=== PATIENT | female | born 2000 | race Caucasian/White ===

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

== ENCOUNTER 2018-07-22 14:54 | Outpatient (RCR) | payer BC | END 2018-07-22 15:31 | disposition home or self-care (01) | PROVIDERS: ATTEND Orthopaedic Surgery | DX: M24.561 Contracture, right knee (principal) ==

== ENCOUNTER 2020-07-29 15:41 | Emergency (ER) | payer BC ==
[~2020-07-29] VITALS: Ht 135 cm; Wt 63.5 kg
[2020-07-29 17:15] LABS: BASOPHILS # (AUTO) 0.1 10^3/uL (0.0-0.1); BASOPHILS % (AUTO) 1 % (0-10); EOSINOPHILS # (AUTO) 0.5 10^3/uL (0.0-0.3); EOSINOPHILS % (AUTO) 4 % (0-10); HEMATOCRIT 43 % (35-52); HEMOGLOBIN 14.9 g/dL (11.5-16.0); LYMPHOCYTES # (AUTO) 3.5 10^3/uL (1.0-4.0); LYMPHOCYTES % (AUTO) 27 % (12-44); MEAN CORPUSCULAR HEMOGLOBIN 32 pg (25-34); MEAN CORPUSCULAR HGB CONC 35 g/dL (32-36); MEAN CORPUSCULAR VOLUME 91 fL (80-99); MEAN PLATELET VOLUME 10.3 fL (9.0-12.2); MONOCYTES # (AUTO) 0.6 10^3/uL (0.0-1.0); MONOCYTES % (AUTO) 5 % (0-12); NEUTROPHILS % (AUTO) 63 % (42-75); PLATELET COUNT 255 10^3/uL (130-400); WHITE BLOOD COUNT 12.7 10^3/uL (4.3-11.0)
[2020-07-29 17:18] LABS: BILIRUBIN,URINE NEGATIVE (NEGATIVE); CLARITY,URINE CLEAR; COLOR,URINE YELLOW; GLUCOSE, URINE (UA) NEGATIVE (NEGATIVE); KETONES,URINE NEGATIVE (NEGATIVE); LEUKOCYTE ESTERASE ,URINE NEGATIVE (NEGATIVE); NITRITE,URINE NEGATIVE (NEGATIVE); PROTEIN,URINE NEGATIVE (NEGATIVE)
[2020-07-29 17:25] LABS: BACTERIA,URINE TRACE /HPF; RBC,URINE 0-2 /HPF; SQUAMOUS EPITHELIAL CELL,UR 0-2 /HPF
--- NOTE | 2020-07-29 17:30 | ED GU-Female ---
General Chief Complaint: Female Reproductive Stated Complaint: + TEST/VAG BLEEDING Nursing Triage Note: pt c/o vaginal bleeding onset today. Reports LMP ended on 07/01, has had 4 positive tests at home Nursing Sepsis Screen: No Definite Risk Source: patient Exam Limitations: no limitations (AMERICO COLUNGA MD) History of Present Illness Date Seen by Provider: July 29, 2020 Time Seen by Provider: 16:54 Initial Comments This 19-year-old young lady presents to the emergency room with complaints of vaginal bleeding and cramping consistent with flow and intensity of a menstrual period. She has recently taken for urine test at home, all of which have been positive. The last one was this morning. Her LMP was June 27. Bleeding and cramping started around 13:00. She had some dysuria yesterday. She denies any vaginal discharge but has had pain with intercourse over the past 2 weeks. Her last intercourse was last night. She has been nauseated without vomiting. She denies any history of vaginal infections. She has never had a pelvic exam. (AMERICO COLUNGA MD) Allergies and Home Medications Allergies Coded Allergies: No Known Drug Allergies (Unverified , 08/27/10) Home Medications Cephalexin 500 Mg Capsule, 500 MG PO TID Prescribed by: LUIS M GASCA on 04/29/17 0149 Patient Home Medication List Home Medication List Reviewed: Yes (AMERICO COLUNGA MD) Review of Systems Review of Systems Constitutional: no symptoms reported EENTM: no symptoms reported Respiratory: no symptoms reported Cardiovascular: no symptoms reported Gastrointestinal: see HPI Genitourinary: see HPI : Yes LMP: Jun 27, 2020 Musculoskeletal: no symptoms reported Skin: no symptoms reported Psychiatric/Neurological: No Symptoms Reported Endocrine: No Symptoms Reported Hematologic/Lymphatic: No Symptoms Reported (AMERICO COLUNGA MD) Past Qldyrze-Mwzkqh-Fnlbrd Hx Past Med/Social Hx: Reviewed and Corrections made (AMERICO COLUNGA MD) Patient Social History Alcohol Use: Denies Use Drug of Choice: WEED Smoking Status: Never a Smoker Recent Infectious Disease Expo: No (AMERICO COLUNGA MD) Past Medical History Surgeries: Yes Adenoidectomy, Tonsillectomy Respiratory: No Cardiac: No Neurological: No : Yes Last Menstrual Period: Jun 27, 2020 Genitourinary: No Gastrointestinal: No Musculoskeletal: No Endocrine: No Cancer: No Psychosocial: No Integumentary: No (AMERICO COLUNGA MD) Physical Exam Vital Signs Vital Signs - First Documented 07/29/20 16:28 Temp 36.7 Pulse 77 Resp 17 B/P (MAP) 136/92 (107) Pulse Ox 100 O2 Delivery Room Air (ANTIONE NOLAN MD) Vital Signs Capillary Refill : Less Than 3 Seconds (AMERICO COLUNGA MD) Height, Weight, BMI Height: 5'5.00" Weight: 132lbs. oz. 59.481829cc; 34.00 BMI Method: General Appearance: WD/WN, no apparent distress HEENT: normal ENT inspection Neck: normal inspection Cardiovascular: regular rate, rhythm, no edema, no murmur Respiratory: lungs clear, normal breath sounds, no respiratory distress Gastrointestinal: normal bowel sounds, soft, tenderness (Minimal in the suprapubic and left adnexal regions) Extremities: normal inspection, no pedal edema Neurologic/Psychiatric: alert, normal mood/affect, oriented x 3 Skin: normal color, warm/dry (AMERICO COLUNGA MD) Progress/Results/Core Measures Suspected Sepsis Recent Fever Within 48 Hours: No Infection Criteria Present: None New/Unexplained Altered Menta: No Sepsis Screen: No Definite Risk SIRS Temperature: Pulse: 77 Respiratory Rate: 17 Laboratory Tests 07/29/20 17:00: White Blood Count 12.7H Blood Pressure 136 /92 Mean: 107 Laboratory Tests 07/29/20 17:00: Platelet Count 255 (AMERICO COLUNGA MD) Results/Orders Lab Results Laboratory Tests Test 07/29/20 17:00 07/29/20 17:04 07/29/20 18:23 Range/Units White Blood Count 12.7 H 4.3-11.0 10^3/uL Red Blood Count 4.70 3.80-5.11 10^6/uL Hemoglobin 14.9 11.5-16.0 g/dL Hematocrit 43 35-52 % Mean Corpuscular Volume 91 80-99 fL Mean Corpuscular Hemoglobin 32 25-34 pg Mean Corpuscular Hemoglobin Concent 35 32-36 g/dL Red Cell Distribution Width 11.5 10.0-14.5 % Platelet Count 255 130-400 10^3/uL Mean Platelet Volume 10.3 9.0-12.2 fL Immature Granulocyte % (Auto) 0 % Neutrophils (%) (Auto) 63 42-75 % Lymphocytes (%) (Auto) 27 12-44 % Monocytes (%) (Auto) 5 0-12 % Eosinophils (%) (Auto) 4 0-10 % Basophils (%) (Auto) 1 0-10 % Neutrophils # (Auto) 8.0 H 1.8-7.8 10^3/uL Lymphocytes # (Auto) 3.5 1.0-4.0 10^3/uL Monocytes # (Auto) 0.6 0.0-1.0 10^3/uL Eosinophils # (Auto) 0.5 H 0.0-0.3 10^3/uL Basophils # (Auto) 0.1 0.0-0.1 10^3/uL Immature Granulocyte # (Auto) 0.0 0.0-0.1 10^3/uL Human Chorionic Gonadotropin, Quant 55 H <5 MIU/ML Urine Color YELLOW Urine Clarity CLEAR Urine pH 6.0 5-9 Urine Specific Crandall 1.015 L 1.016-1.022 Urine Protein NEGATIVE NEGATIVE Urine Glucose (UA) NEGATIVE NEGATIVE Urine Ketones NEGATIVE NEGATIVE Urine Nitrite NEGATIVE NEGATIVE Urine Bilirubin NEGATIVE NEGATIVE Urine Urobilinogen 0.2 < = 1.0 MG/DL Urine Leukocyte Esterase NEGATIVE NEGATIVE Urine RBC (Auto) 2+ H NEGATIVE Urine RBC 0-2 /HPF Urine WBC NONE /HPF Urine Squamous Epithelial Cells 0-2 /HPF Urine Crystals NONE /LPF Urine Bacteria TRACE /HPF Urine Casts NONE /LPF Urine Mucus SMALL H /LPF Urine Culture Indicated NO (ANTIONE NOLAN MD) My Orders Orders - ANTIONE NOLAN MD Ceftriaxone For Im Use (Rocephin For Im (07/29/20 18:30) Azithromycin Tablet (Zithromax Tablet) (07/30/20 09:00) Lidocaine 1% Inj 20 Ml (Xylocaine 1% Inj (07/29/20 18:30) (ANTIONE NOLAN MD) Vital Signs/I&O 07/29/20 16:28 Temp 36.7 Pulse 77 Resp 17 B/P (MAP) 136/92 (107) Pulse Ox 100 O2 Delivery Room Air (ANTIONE NOLAN MD) Vital Signs/I&O Capillary Refill : Less Than 3 Seconds (AMERICO COLUNGA MD) Blood Pressure Mean: 107 Progress Note : Time: 17:29 Progress Note Patient was seen and examined. Labs and urinalysis are pending. Patient was offered a pelvic exam which she accepts, but she would like to wait for Dr. Nolan (female provider) as she is nervous because she has never had a pelvic exam before. (AMERICO COLUNGA MD) Progress Note : Time: 18:25 Progress Note Patient care assumed at shift change from Dr Feliciano. Pelvic exam completed. She was quite tender on bimanual exam. She did not have abnormal vaginal discharge but she did have a mild to moderate amount of dark brownish blood in the vault. Swabs for GC and chlamydia were taken. Wet prep was also obtained. Os was closed on this exam. She was quite tender in the bilateral adnexa. No masses were palpated. Patient will be treated with Zithromax and Rocephin here in the department. She will come back in 2 days for repeat quantitative hCG. Patient is counseled on pelvic rest over the next several days until follow-up with [employer]. She verbalized understanding. All questions are sought and answered. Patient is stable for discharge. (ANTIONE NOLAN MD) Departure Impression Primary Impression: Threatened miscarriage Disposition: 01 HOME, SELF-CARE Condition: Stable Departure-Patient Inst. Decision time for Depature: 18:28 (ANTIONE NOLAN MD) Referrals: TERESO BARNES MD (PCP/Family) Primary Care Physician Patient Instructions: Threatened Miscarriage (DC) Add. Discharge Instructions: Please drink plenty of fluids to stay well-hydrated. Continue to take vitamins. You can take also agrl-xwv-dqfhjcq extra strength Tylenol 2 tablets every 4-6 hours as needed for cramping and pain. This is safe in early . You have been given an order sheet for repeat blood work for your hormone level. You need to come back on Friday to have this redrawn. Please follow-up with your primary care/[employer] provider next week. Return to the emergency room for any worsening pain, heavy bleeding, fevers or any other emergent concerning symptoms. AMERICO COLUNGA MD July 29, 2020 17:30 ANTIONE NOLAN MD July 29, 2020 18:29
[2020-07-29] MEDS ORDERED: LIDOCAINE 1% INJ 20 ML 20 ML VIAL INJ ONE (18:30)
[2020-07-29] MEDS ORDERED: cefTRIAXone 250 MG/ML vial (IM ONLY) IM ONE (18:30)
[2020-07-29 19:07] VITALS: BP 136/92
[2020-07-30] MEDS ORDERED: AZITHROMYCIN 250 MG TAB (ZITHROMAX) PO SCH (09:00)
== END 2020-07-29 19:07 | disposition home or self-care (01) ==
LOC: EDUNIT# 15:41 → ER 15:45
DX: O20.0 Threatened abortion (principal); Z3A.00 Weeks of gestation of pregnancy not specified
CPT/HCPCS: 36415; 81000; 84702; 85025; 86900; 86901; 87070; 87077; 87205; 87210; 87491; 87591; 99284

== ENCOUNTER → 2020-07-31 | Outpatient (CLI) | payer BC | LOC: LAB 11:27 | PROVIDERS: ATTEND Emergency Medicine | DX: O20.0 Threatened abortion (principal) | CPT/HCPCS: 36415; 84702 ==

== ENCOUNTER → 2020-08-07 | Outpatient (CLI) | payer BC ==
--- NOTE | 2020-08-07 18:45 | Diagnostic Imaging Report ---
PROCEDURE: US OB SINGLE FETUS <14 WKS. TECHNIQUE: Multiple real-time grayscale images were obtained over the pelvis in various projections transabdominally and transvaginally. INDICATION: Threatened miscarriage, bleeding and spotting during over the past 3 days. CORRELATION STUDY: None FINDINGS: Uterus is 6.1 x 3.4 x 4.0 cm. Uterus is retroverted. Endometrium is thin at approximately 2-3 mm. There is no sonographic evidence for an intrauterine gestational sac. Imaging of the adnexa demonstrates the ovaries to be unremarkable. Right ovary is 3.8 x 1.5 x 3.0 cm. The left ovary is 2.0 x 1.6 x 2.1 cm. Small likely physiologic follicles are present. Normal blood flow to the ovaries. No definitive abnormal adnexal mass lesion. IMPRESSION: 1. No sonographic evidence for an intrauterine or extrauterine at this time. Correlation with serial beta hCG and pelvic ultrasound imaging as clinically warranted. Dictated by: Dictated on workstation # [id number]
== END ==
LOC: RAD 14:30
PROVIDERS: ATTEND Family Medicine
DX: O20.0 Threatened abortion (principal); Z3A.00 Weeks of gestation of pregnancy not specified
CPT/HCPCS: 76801

== ENCOUNTER 2021-05-21 10:38 | Observation (INO) | payer BC ==
[2021-05-21] VITALS (13 sets, daily range): BP systolic 111–124; BP diastolic 68–90
[~2021-05-21] VITALS: Ht 165.1 cm; Wt 85.3 kg
[2021-05-21 11:20] LABS: BASOPHILS # (AUTO) 0.1 10^3/uL (0.0-0.1); BASOPHILS % (AUTO) 1 % (0-10); EOSINOPHILS # (AUTO) 0.3 10^3/uL (0.0-0.3); EOSINOPHILS % (AUTO) 1 % (0-10); HEMATOCRIT 38 % (35-52); HEMOGLOBIN 13.4 g/dL (11.5-16.0); LYMPHOCYTES # (AUTO) 3.3 10^3/uL (1.0-4.0); LYMPHOCYTES % (AUTO) 17 % (12-44); MEAN CORPUSCULAR HEMOGLOBIN 32 pg (25-34); MEAN CORPUSCULAR HGB CONC 35 g/dL (32-36); MEAN CORPUSCULAR VOLUME 92 fL (80-99); MEAN PLATELET VOLUME 10.2 fL (9.0-12.2); MONOCYTES # (AUTO) 1.1 10^3/uL (0.0-1.0); MONOCYTES % (AUTO) 6 % (0-12); NEUTROPHILS # (AUTO) 14.4 10^3/uL (1.8-7.8); NEUTROPHILS % (AUTO) 73 % (42-75); PLATELET COUNT 286 10^3/uL (130-400); WHITE BLOOD COUNT 19.7 10^3/uL (4.3-11.0)
[2021-05-21 11:42] LABS: ALBUMIN 3.2 GM/DL (3.2-4.5); BILIRUBIN,TOTAL 0.2 MG/DL (0.1-1.0); CALCIUM 8.8 MG/DL (8.5-10.1); CREATININE SERUM 0.62 MG/DL (0.60-1.30); POTASSIUM 3.7 MMOL/L (3.6-5.0); TOTAL PROTEIN 6.3 GM/DL (6.4-8.2); URIC ACID 2.9 MG/DL (2.6-7.2)
[2021-05-21 11:43] LABS: BAND NEUTROPHILS 3 %; BASOPHILS % (MANUAL) 2 %; EOSINOPHILS % (MANUAL) 2 %; LYMPHOCYTES % (MANUAL) 13 %; MONOCYTES % (MANUAL) 4 %; NEUTROPHILS % (MANUAL) 76 %; RBC MORPH NORMAL
[2021-05-21] MEDS ORDERED: CALCIUM CARBONATE 500 MG (TUMS) TAB.CHEW PO NR (17:30)
[2021-05-21] MEDS ORDERED: ACETAMINOPHEN 500 MG TAB (TYLENOL) PO PRN (17:30)
[2021-05-22 00:35] VITALS: BP 108/61
[2021-05-22 04:01] VITALS: BP 107/68
[2021-05-22 08:00] VITALS: BP 113/76
[2021-05-22 09:07] VITALS: BP 113/76
[2021-05-22 11:18] LABS: PROTEIN URINE MG/DL < 6 MG/DL (6-12)
[2021-05-22 11:25] LABS: TOTAL VOLUME,URINE 1900 ML
[2021-05-22 12:00] VITALS: BP 124/72
--- NOTE | 2021-05-22 13:19 | Short Stay Summary ---
History of Present Illness History of Present Illness Reason for visit/HPI at 37w0d, found to have second elevated blood pressure within a week outpatient and elevated urine protein/creatinine spot value as well as complaining of spots in vision, admitted for rule out preeclampsia. Date of Admission May 21, 2021 at 10:38 Date of Discharge May 22, 2021 Time Seen by Provider: 13:00 Attending Physician Tereso Sin MD Admitting Physician Tereso Sin MD Consult Allergies and Home Medications Allergies Coded Allergies: No Known Drug Allergies (Unverified , 08/27/10) Patient Home Medication List Home Medication List Reviewed: Yes Acetaminophen (Acetaminophen) 500 Mg Tablet, 500 MG PO Q6H PRN for PAIN-MILD (1- 4), (Reported) Entered as Reported by: TERESO SIN on 05/22/21 1330 Vit No.124/Iron/FA ( Vitamin Tablet) 1 Each Tablet, 1 EACH PO DAILY, (Reported) Entered as Reported by: TERESO SIN on 05/22/21 1329 Discontinued Medications Cephalexin (Keflex) 500 Mg Capsule, 500 MG PO TID Prescribed by: LUIS M GASCA on 04/29/17 1705 Past Dqqjwqs-Zqfiob-Hrbikv Hx Patient Social History Drug of Choice: history of THC Smoking Status: Never a Smoker 2nd Hand Smoke Exposure: Yes Immunizations Up To Date Tetanus Booster (TDap): Less than 5yrs (03/30/21) Date of Influenza Vaccine: Jan 03, 2021 Surgeries Yes Adenoidectomy, Tonsillectomy Respiratory No Cardiovascular No Neurological No Reproductive System Expected Date of Delivery: Jun 11, 2021 Hx : 2 Hx Para: 0 Hx Total # of Abortions (Spona: 1 Hx Reproductive Disorders: No Sexually Transmitted Disease: No HIV/AIDS: No Genitourinary No Gastrointestinal No Musculoskeletal No Endocrine History of Endocrine Disorders: No Cancer No Psychosocial History of Psychiatric Problem: No Integumentary History of Skin or Integumenta: No Family Medical History Significant Family History: Hypertension, Psychiatric Problems Review of Systems Constitutional: No fever Respiratory: No short of breath Gastrointestinal: No abdominal pain Genitourinary: pain (vaginal) : Yes Expected Date of Delivery: Jun 11, 2021 Skin: no symptoms reported Psychiatric/Neurological: No Symptoms Reported Physical Exam Vital Signs VS - Last 72 Hours, by Label 05/21/21 05/21/21 05/21/21 05/21/21 10:38 10:38 10:55 11:15 Temp 36.8 36.8 Pulse 85 85 85 80 Resp 18 18 18 18 B/P (MAP) 119/90 (100) 124/75 (91) 114/77 Pulse Ox 94 94 O2 Delivery Room Air Room Air Room Air 05/21/21 05/21/21 05/21/21 05/21/21 11:15 11:15 11:25 11:40 Temp 37.8 Pulse 85 77 81 76 Resp 18 18 18 18 B/P (MAP) 119/90 116/69 (85) 111/74 (86) 118/74 (89) O2 Delivery Room Air Room Air Room Air 05/21/21 05/21/21 05/21/21 05/21/21 11:55 12:10 12:25 12:36 Temp 37.8 Pulse 82 80 75 85 Resp 18 18 18 18 B/P (MAP) 111/68 (82) 114/77 (89) 117/72 (87) Pulse Ox 94 O2 Delivery Room Air Room Air Room Air Room Air 05/21/21 05/21/21 05/21/21 05/22/21 17:14 20:40 20:45 00:35 Temp 36.2 36.0 36.0 36.2 Pulse 83 88 88 68 Resp 18 18 18 18 B/P (MAP) 115/75 (88) 123/68 123/68 (86) 108/61 (77) Pulse Ox 99 96 99 O2 Delivery Room Air Room Air Room Air 05/22/21 05/22/21 05/22/21 05/22/21 04:01 08:00 09:07 12:00 Temp 36.1 36.4 36.4 36.4 Pulse 68 78 78 78 Resp 18 18 18 18 B/P (MAP) 107/68 (81) 113/76 (88) 113/76 124/72 (89) Pulse Ox 98 98 O2 Delivery Room Air Room Air Room Air 05/22/21 14:20 Temp 36.4 Pulse 78 Resp 18 B/P (MAP) 124/72 Pulse Ox 98 O2 Delivery Room Air Height, Weight, BMI Height: 5'5.00" Weight: 132lbs. oz. 59.881722nt; 31.29 BMI Method: General Appearance: No Apparent Distress, WD/WN Respiratory: No Respiratory Distress; No Accessory Muscle Use Gastrointestinal: Other (gravid) Extremity: No Pedal Edema Neurologic/Psychiatric: Alert, Normal Mood/Affect Skin: Normal Color, Warm/Dry Short Stay Diagnosis Discharge Diagnosis-Short Stay Admission Diagnosis: Elevated blood pressure in third trimester of Term intrauterine at 37 weeks gestation Final Discharge Diagnosis: Term intrauterine at 37 weeks gestation Conclusion Labs Laboratory Tests 05/22/21 10:20: Urine Total Volume 1900, Urine Total Protein mg/dL < 6L, Urine Total Protein 24 Hour Conclusion/Plan Pt admitted, preeclampsia labs were normal (has chronic elevated WBC, not consistent with preeclampsia concern) and 24 hour urine protein was very low. Blood pressure was normal for the next 24 hours after only one diastolic of 90 on admission. status reassuring with reactive NSTs throughout stay. TERESO SIN MD May 22, 2021 13:19
[2021-05-22] MEDS ORDERED: PREN-142 PO (13:29)
[2021-05-22] MEDS ORDERED: ACET-93 PO (13:30)
[2021-05-22 14:20] VITALS: BP 124/72
== END 2021-05-22 14:20 | disposition home or self-care (01) ==
LOC: LDRP 10:38
PROVIDERS: ADMIT Family Medicine; ATTEND Family Medicine
DX: O26.893 Other specified pregnancy related conditions, third trimester (principal); R03.0 Elevated blood-pressure reading, without diagnosis of hypertension; Z3A.37 37 weeks gestation of pregnancy; Z79.899 Other long term (current) drug therapy; Z82.49 Family history of ischemic heart disease and other diseases of the circulatory system
CPT/HCPCS: 36415; 80053; 83615; 84156; 84550; 85007; 85027

== ENCOUNTER 2021-05-23 19:46 | Outpatient (CLI) | payer BC ==
[~2021-05-23] VITALS: Ht 165.1 cm; Wt 85.0 kg
[~2021-05-23 19:46] MED LIST changes: +ACET-93 PO; +PREN-142 PO
[2021-05-23 20:10] VITALS: BP 115/77
[2021-05-23 20:25] VITALS: BP 111/75
[2021-05-23 20:45] VITALS: BP 111/71
[2021-05-23 20:55] VITALS: BP 109/69
[2021-05-23 21:03] LABS: BILIRUBIN,URINE NEGATIVE (NEGATIVE); CLARITY,URINE SL CLOUDY; COLOR,URINE YELLOW; GLUCOSE, URINE (UA) NEGATIVE (NEGATIVE); KETONES,URINE NEGATIVE (NEGATIVE); LEUKOCYTE ESTERASE ,URINE NEGATIVE (NEGATIVE); NITRITE,URINE NEGATIVE (NEGATIVE); PROTEIN,URINE NEGATIVE (NEGATIVE)
[2021-05-23 21:29] LABS: AMORPHOUS SEDIMENT,UR LARGE AMOR PHOSPHATE /LPF; BACTERIA,URINE LARGE /HPF
--- NOTE | 2021-05-24 08:18 | Physician Query-Final Dx ---
Clinic Account Progress/Dx Physician Query: Please give diagnosis (pl) Please include # weeks gestation Date of Service May 23, 2021 at 19:46 ,MarMay 24, 2021 08:18
== END 2021-05-23 21:05 ==
LOC: WSo 19:46 → LDRP 19:46 → WSo 21:05
PROVIDERS: ATTEND Family Medicine
DX: O13.9 Gestational [pregnancy-induced] hypertension without significant proteinuria, unspecified trimester (principal); Z3A.00 Weeks of gestation of pregnancy not specified
CPT/HCPCS: 81000; 87088; 99212

== ENCOUNTER → 2021-05-31 | Outpatient (CLI) | payer BC ==
[2021-05-31 16:30] LABS: BASOPHILS # (AUTO) 0.1 10^3/uL (0.0-0.1); BASOPHILS % (AUTO) 0 % (0-10); EOSINOPHILS # (AUTO) 0.5 10^3/uL (0.0-0.3); EOSINOPHILS % (AUTO) 3 % (0-10); HEMATOCRIT 37 % (35-52); HEMOGLOBIN 13.2 g/dL (11.5-16.0); LYMPHOCYTES # (AUTO) 2.7 10^3/uL (1.0-4.0); LYMPHOCYTES % (AUTO) 15 % (12-44); MEAN CORPUSCULAR HEMOGLOBIN 33 pg (25-34); MEAN CORPUSCULAR HGB CONC 36 g/dL (32-36); MEAN CORPUSCULAR VOLUME 92 fL (80-99); MEAN PLATELET VOLUME 10.4 fL (9.0-12.2); MONOCYTES % (AUTO) 6 % (0-12); NEUTROPHILS % (AUTO) 74 % (42-75); PLATELET COUNT 326 10^3/uL (130-400); WHITE BLOOD COUNT 17.7 10^3/uL (4.3-11.0)
[2021-05-31 16:42] LABS: ALBUMIN 3.4 GM/DL (3.2-4.5); POTASSIUM 3.6 MMOL/L (3.6-5.0)
[2021-05-31 16:43] LABS: CALCIUM 9.3 MG/DL (8.5-10.1)
[2021-05-31 16:44] LABS: TOTAL PROTEIN 6.8 GM/DL (6.4-8.2)
[2021-05-31 16:46] LABS: BILIRUBIN,TOTAL 0.3 MG/DL (0.1-1.0)
[2021-05-31 16:48] LABS: CREATININE SERUM 0.68 MG/DL (0.60-1.30)
[2021-05-31 16:51] LABS: URIC ACID 2.9 MG/DL (2.6-7.2)
[2021-05-31 16:53] LABS: BAND NEUTROPHILS 1 %; EOSINOPHILS % (MANUAL) 2 %; LYMPHOCYTES % (MANUAL) 19 %; METAMYELOCYTES % 2 %; MONOCYTES % (MANUAL) 6 %; NEUTROPHILS % (MANUAL) 70 %; PLATELET CLUMPS SLIGHT
[2021-05-31 16:54] LABS: RBC MORPH NORMAL
== END ==
LOC: LAB 16:06
PROVIDERS: ATTEND Family Medicine
DX: O13.3 Gestational [pregnancy-induced] hypertension without significant proteinuria, third trimester (principal); Z3A.00 Weeks of gestation of pregnancy not specified
CPT/HCPCS: 36415; 80053; 82570; 83615; 84156; 84550; 85007; 85027

== ENCOUNTER 2021-06-04 18:19 | Inpatient (IN) | payer BC ==
[~2021-06-04] VITALS: Ht 165.1 cm; Wt 86.7 kg
[2021-06-04] VITALS (7 sets, daily range): BP systolic 116–129; BP diastolic 57–81
[2021-06-04] MEDS ORDERED: MINERAL OIL 30 ML OIL TOP PRN (18:45)
[2021-06-04] MEDS: LACTATED RINGERS 1,000 ML IV SCH (18:55)
[2021-06-04] MEDS ORDERED: MINERAL OIL CONCENTRATE 99.9% 15 ML UDC TOP PRN (19:00)
[2021-06-04 19:18] LABS: BASOPHILS # (AUTO) 0.1 10^3/uL (0.0-0.1); BASOPHILS % (AUTO) 0 % (0-10); EOSINOPHILS # (AUTO) 0.3 10^3/uL (0.0-0.3); EOSINOPHILS % (AUTO) 1 % (0-10); HEMATOCRIT 40 % (35-52); HEMOGLOBIN 14.1 g/dL (11.5-16.0); LYMPHOCYTES # (AUTO) 3.6 10^3/uL (1.0-4.0); LYMPHOCYTES % (AUTO) 16 % (12-44); MEAN CORPUSCULAR HEMOGLOBIN 33 pg (25-34); MEAN CORPUSCULAR HGB CONC 36 g/dL (32-36); MEAN CORPUSCULAR VOLUME 92 fL (80-99); MEAN PLATELET VOLUME 10.4 fL (9.0-12.2); MONOCYTES # (AUTO) 1.4 10^3/uL (0.0-1.0); MONOCYTES % (AUTO) 6 % (0-12); NEUTROPHILS # (AUTO) 16.7 10^3/uL (1.8-7.8); NEUTROPHILS % (AUTO) 74 % (42-75); PLATELET COUNT 368 10^3/uL (130-400); WHITE BLOOD COUNT 22.6 10^3/uL (4.3-11.0)
[2021-06-04 19:38] LABS: EOSINOPHILS % (MANUAL) 2 %; LYMPHOCYTES % (MANUAL) 14 %; MONOCYTES % (MANUAL) 10 %; NEUTROPHILS % (MANUAL) 74 %
[2021-06-04 19:39] LABS: RBC MORPH NORMAL
[2021-06-04 19:43] LABS: ALBUMIN 3.4 GM/DL (3.2-4.5); BILIRUBIN,TOTAL 0.4 MG/DL (0.1-1.0); CALCIUM 8.8 MG/DL (8.5-10.1); CREATININE SERUM 0.71 MG/DL (0.60-1.30); POTASSIUM 3.2 MMOL/L (3.6-5.0); TOTAL PROTEIN 6.9 GM/DL (6.4-8.2); URIC ACID 3.6 MG/DL (2.6-7.2)
[2021-06-04] MEDS: D5 LR IV SOLUTION 1,000 ML IV SCH (20:00)
[2021-06-04] MEDS ORDERED: CALCIUM CARBONATE 500 MG (TUMS) TAB.CHEW PO PRN (20:15)
[2021-06-04] MEDS ORDERED: CALCIUM CARBONATE 500 MG (TUMS) TAB.CHEW ONE (20:36)
[2021-06-04] MEDS: CATHETER FLUSH 10 ML SYR IV SCH (21:42)
[2021-06-04] MEDS ORDERED: fentaNYL INJ 100 MCG/2 ML AMP IVP PRN (21:45)
[2021-06-04 23:56] LABS: BILIRUBIN,URINE NEGATIVE (NEGATIVE); CLARITY,URINE CLEAR; COLOR,URINE YELLOW; GLUCOSE, URINE (UA) NEGATIVE (NEGATIVE); KETONES,URINE NEGATIVE (NEGATIVE); LEUKOCYTE ESTERASE ,URINE NEGATIVE (NEGATIVE); NITRITE,URINE NEGATIVE (NEGATIVE); PH,URINE 6.5 (5-9); PROTEIN,URINE NEGATIVE (NEGATIVE)
[2021-06-05] VITALS (72 sets, daily range): BP systolic 106–161; BP diastolic 56–91
[2021-06-05 00:05] LABS: BACTERIA,URINE TRACE /HPF
[2021-06-05 00:14] LABS: URINE CREATININE FOR RATIO 59 MG/DL (30-125)
[2021-06-05 00:15] LABS: URINE PROTEIN FOR RATIO ONLY < 6 MG/DL (6-12)
[2021-06-05] MEDS: D5 LR IV SOLUTION 1,000 ML IV SCH ×3 (03:53→19:06)
[2021-06-05] MEDS: CATHETER FLUSH 10 ML SYR IV SCH ×2 (06:00→19:06)
--- NOTE | 2021-06-05 08:31 | History & Physical-OB/GYN ---
MAGGIE COLES III MED STUDENT 06/05/21 0831: OB - Chief Complaint & HPI Date/Time Date of Admission: Date of Admission: Jun 04, 2021 at 18:19 Date seen by a Provider: Jun 05, 2021 Time Seen by a Provider: 08:20 Chief Complaint/History OB-Reason for Admission/Chief: Induction of Labor Hx : 2 Hx Para: 1 Hx Last Menstrual Period: 09/04/2020 Expected Date of Delivery: Jun 11, 2021 Gestational Age in Weeks: 39 Gestational Age in Days: 1 Indication for induction: medical complication (gestational hypertension) History of Labs B+, antibody negative, RI, HIV/HepB/RPR negative, GC/Chlamydia negative, GBS negative, glucola negative Allergies and Home Medications Allergies Coded Allergies: No Known Drug Allergies (Unverified , 08/27/10) Patient Home Medication List Home Medication List Reviewed: Yes Acetaminophen (Acetaminophen) 500 Mg Tablet, 500 MG PO Q6H PRN for PAIN-MILD (1- 4), (Reported) Entered as Reported by: TERESO BARNES on 05/22/21 1330 Last Action: Reviewed Vit No.124/Iron/FA ( Vitamin Tablet) 1 Each Tablet, 1 EACH PO DAILY, (Reported) Entered as Reported by: TERESO BARNES on 05/22/21 1329 Last Action: Reviewed OB - History Hx of Present Care: Yes Ultrasounds: Normal mid trimester US Obstetrical Complications: Gestational Hypertension Medical Complications: None Information Induced Hypertension: Yes Maternal Gestational Diabetes: No Obstetrical History Hx : 2 Hx Para: 1 Hx # Term Pregnancies: 0 Hx # Pregnancies: 0 Number of Living Children: 0 Hx Total # of Abortions (Spona: 1 Hx Multiple Gestation: No Hx Ectopic : No Hx Maternal Gestational Diabet: No Hx Hemorrhage: No Patient Past Medical History Hx of migraines Social History/Family History Alcohol Use: Denies Use Recreational Drug Use: No Smoking Cessation: Never smoker 2nd Hand Smoke Exposure: No Immunizations Influenza Vaccine Up-to-Date: Yes; Up-to-Date Tetanus Booster (TDap): Less than 5yrs Rubella: immune RPR/VDRL: Negative GBS Status: Negative HBsAG: Negative OB - Admission Exam Physical Exam Vitals: Vital Signs 06/04/21 06/05/21 20:00 07:31 Temp 36.5 Pulse 67 Resp 18 B/P (MAP) 122/73 (89) Pulse Ox 98 O2 Delivery Room Air HEENT: PERRLA Heart: Rhythm Normal Lungs: Clear Abdomen: Gravid Extremities: Normal Cervical Dilatation: 2cm Effacement: 50% Station: -1 Membranes: Intact Heart Rate: 130's Accelerations: Accelerations Present Decelerations: No Decelerations Short Term Variability: Absent Fci Variability: Average (6-25) Contractions on Admission: 6-10 Minutes Apart Date/Time Contractions Began;: misoprostol administered at 1999 on 06/04, Frequency of Contractions: 4 minutes apart Intensity: Moderate Villar Scoring Tool (Modified) Dilation (cm): 1-2cm (1) Effacement (%): 31-51% (1) Descent/Station: -1,0 (2) Cervix Consistency: Soft (2) (after cytotec ) Cervix Position: Posterior (0) Villar Score: 6 Labs Laboratory Tests Test 06/04/21 18:55 06/04/21 23:41 06/04/21 23:51 Range/Units White Blood Count 22.6 H 4.3-11.0 10^3/uL Red Blood Count 4.34 3.80-5.11 10^6/uL Hemoglobin 14.1 11.5-16.0 g/dL Hematocrit 40 35-52 % Mean Corpuscular Volume 92 80-99 fL Mean Corpuscular Hemoglobin 33 25-34 pg Mean Corpuscular Hemoglobin Concent 36 32-36 g/dL Red Cell Distribution Width 12.2 10.0-14.5 % Platelet Count 368 130-400 10^3/uL Mean Platelet Volume 10.4 9.0-12.2 fL Immature Granulocyte % (Auto) 3 % Neutrophils (%) (Auto) 74 42-75 % Lymphocytes (%) (Auto) 16 12-44 % Monocytes (%) (Auto) 6 0-12 % Eosinophils (%) (Auto) 1 0-10 % Basophils (%) (Auto) 0 0-10 % Neutrophils # (Auto) 16.7 H 1.8-7.8 10^3/uL Lymphocytes # (Auto) 3.6 1.0-4.0 10^3/uL Monocytes # (Auto) 1.4 H 0.0-1.0 10^3/uL Eosinophils # (Auto) 0.3 0.0-0.3 10^3/uL Basophils # (Auto) 0.1 0.0-0.1 10^3/uL Immature Granulocyte # (Auto) 0.6 H 0.0-0.1 10^3/uL Neutrophils % (Manual) 74 % Lymphocytes % (Manual) 14 % Monocytes % (Manual) 10 % Eosinophils % (Manual) 2 % Blood Morphology Comment NORMAL Sodium Level 134 L 135-145 MMOL/L Potassium Level 3.2 L 3.6-5.0 MMOL/L Chloride Level 106 98-107 MMOL/L Carbon Dioxide Level 16 L 21-32 MMOL/L Anion Gap 12 5-14 MMOL/L Blood Urea Nitrogen 9 7-18 MG/DL Creatinine 0.71 0.60-1.30 MG/DL Estimat Glomerular Filtration Rate 123 BUN/Creatinine Ratio 13 Glucose Level 90 70-105 MG/DL Uric Acid 3.6 2.6-7.2 MG/DL Calcium Level 8.8 8.5-10.1 MG/DL Corrected Calcium 9.3 8.5-10.1 MG/DL Total Bilirubin 0.4 0.1-1.0 MG/DL Aspartate Amino Transf (AST/SGOT) 14 5-34 U/L Alanine Aminotransferase (ALT/SGPT) 7 0-55 U/L Alkaline Phosphatase 214 H 40-136 U/L Lactate Dehydrogenase 154 125-220 U/L Total Protein 6.9 6.4-8.2 GM/DL Albumin 3.4 3.2-4.5 GM/DL Urine Protein < 6 L NEGATIVE NEGATIVE Urine Creatinine 59 30-125 MG/DL Urine Protein/Creatinine Ratio Urine Color YELLOW Urine Clarity CLEAR Urine pH 6.5 5-9 Urine Specific [place] <=1.005 1.016-1.022 Urine Glucose (UA) NEGATIVE NEGATIVE Urine Ketones NEGATIVE NEGATIVE Urine Nitrite NEGATIVE NEGATIVE Urine Bilirubin NEGATIVE NEGATIVE Urine Urobilinogen 0.2 < = 1.0 MG/DL Urine Leukocyte Esterase NEGATIVE NEGATIVE Urine RBC (Auto) NEGATIVE NEGATIVE Urine RBC NONE /HPF Urine WBC NONE /HPF Urine Squamous Epithelial Cells 2-5 /HPF Urine Crystals NONE /LPF Urine Bacteria TRACE /HPF Urine Casts NONE /LPF Urine Mucus SMALL H /LPF Urine Culture Indicated NO OB - Assessment/Plan/Diagnosis Assessment Assessment: induction of labor Admission Dx Induction of lab at 39w1d because of gestational hypertension in mother Plan Plan: Expectant Management, Induction Induction Method: per Pitocin Protocol (with cervical ripening w/ misoprostol on night of admission ) TERESO BARNES MD 06/05/21 0958: OB - Chief Complaint & HPI Chief Complaint/History Hx : 2 Hx Para: 0 Other at 39w1d, has had recurrent mild elevations in blood pressure in clinic setting, first noted with a diastolic pressure of 90 at 36w4d visit, at which time preeclampsia labs were checked and she did have a urine protein/creatinine ratio of 0.37 (otherwise unremarkable except baseline mildly elevated WBC count), she was re-evaluated at time of results, and her BP was normal, but she was endorsing some symptoms or preeclampsia, so she was admitted for observation and 24 hour urine protein and repeat labs, all of which were normal. Since then, she has monitored blood pressure at home along with outpatient visits with max being 143/87 and 142/80 on separate days. Repeat preeclampsia labs remained nega tive on 05/31, and induction was planned at 39 weeks due to the gestational hypertension without feature of preeclampsia. Allergies and Home Medications Allergies Coded Allergies: No Known Drug Allergies (Unverified , 08/27/10) Patient Home Medication List Acetaminophen (Acetaminophen) 500 Mg Tablet, 500 MG PO Q6H PRN for PAIN-MILD (1- 4), (Reported) Entered as Reported by: TERESO BARNES on 05/22/21 1330 Last Action: Reviewed Vit No.124/Iron/FA ( Vitamin Tablet) 1 Each Tablet, 1 EACH PO DAILY, (Reported) Entered as Reported by: TERESO BARNES on 05/22/21 1329 Last Action: Reviewed OB - History Obstetrical History Hx : 2 Hx Para: 0 Hx # Term Pregnancies: 0 Hx # Pregnancies: 0 Number of Living Children: 0 Hx Total # of Abortions (Spona: 1 Hx Stillbirth: No Hx Complication: No Hx Induced Hypertens: Yes Patient Past Medical History SurgHx: Tonsillectomy and adenoidectomy Social History/Family History Recreational Drug Use: No (history of THC use prior to , weaned off early in ) Immunizations Influenza Vaccine Up-to-Date: Yes; Up-to-Date (01/03/21) Tetanus Booster (TDap): Less than 5yrs (03/30/21) OB - Admission Exam Physical Exam Abdomen: Non tender (gravid) Cervical Dilatation: 2cm Effacement: 50% Station: -1 Membranes: Intact Heart Rate: 130's Accelerations: Accelerations Present Decelerations: No Decelerations Short Term Variability: Present Psychodramatist Variability: Average (6-25) Contractions on Admission: None Villar Scoring Tool (Modified) Dilation (cm): 1-2cm (1) (on admission) Effacement (%): 0-30% (0) Descent/Station: -3 (0) Cervix Consistency: Medium(1) Cervix Position: Posterior (0) Subtract 1 point for: Nulliparity (-1) Villar Score: 1 OB - Assessment/Plan/Diagnosis Assessment Admission Dx Term intrauterine at 39 weeks gestation Gestational hypertension GBS negative Admission Status: Inpatient Order (span 2 midnights) Reason for Inpatient Admission: Labor, delivery and course Plan Other Plan GHTN- -Induction per misoprostol procol started last night due to low Villar score, cervix now 2/50/-1, soft and mid-position, stevan frequently, will not continue misoprostol, patient prefers to wait on AROM due to discomfort, will start pitocin and plan for AROM when cervix anterior or after epidural placed. -Preeclampsia labs drawn on admit- negative for superimposed preeclampsia Problems: (1) Gestational hypertension Qualifiers: Qualified Codes: O13.3 - Gestational [-induced] hypertension without significant proteinuria, third trimester Supervisory-Addendum Brief Verification & Attestation Participated in pt care: history, MDM, physical Personally performed: exam, history, MDM Care discussed with: Medical Student Procedures: n/a I personally saw and examined patient at 8:20 this morning. See my notes for my exam findings and plan, I did not repeat the entire done by the medical student but performed my own exam as documented. Also note she is and her Villar score on admit was 1. MAGGIE COLES III MED STUDENT Jun 05, 2021 08:31 TERESO BARNES MD Jun 05, 2021 09:58
[2021-06-05] MEDS ORDERED: OXYTOCIN PRE-MIX DRIP 500 ML IV ONE (08:35)
[2021-06-05] MEDS: OXYTOCIN PRE-MIX DRIP 500 ML IV SCH ×2 (08:40→20:08)
[2021-06-05] MEDS: LACTATED RINGERS 1,000 ML IV SCH (13:00)
[2021-06-05] MEDS ORDERED: fentaNYL 2 mcg/ml BUPIVA 0.125 100 ML ONE (13:17)
--- NOTE | 2021-06-05 13:22 | Labor Progress Note ---
Labor Progress Note Labor Progress Note Date Seen by Provider: Jun 05, 2021 Time Seen by Provider: 13:00 Subjective: Pt denies complaints. Objective: Cervical exam: /- Consistency: soft Position: mid Presentation: vertex heart tones: 130 beats per minute, moderate variability, accels present- category I tracing Tocometer: 5 ctx/10 minutes Assessment/Plan: Dipesh Montes is a 20 /Para 2 / 0,Gestational Age (wks)39 here for induction of labor for gestational hypertension. AROM done at time of exam with clear fluid. CEFM/TOCO Continue pitocin Anesthesia: none Anticipate vaginal delivery. Vitals - Labs Vital Signs - I&O Vital Signs Date Time Temp Pulse Resp B/P (MAP) Pulse Ox O2 Delivery O2 Flow Rate FiO2 06/05/21 12:18 81 18 115/61 (79) Room Air 06/05/21 12:03 78 18 132/64 (86) Room Air 06/05/21 11:47 78 18 119/73 (88) Room Air 06/05/21 11:33 37.0 69 18 124/75 (91) Room Air 06/05/21 11:18 84 18 128/86 (100) Room Air 06/05/21 11:02 85 18 125/80 (95) Room Air 06/05/21 10:48 86 18 110/70 (83) Room Air 06/05/21 10:18 77 18 129/81 (97) Room Air 06/05/21 10:05 75 18 133/80 (97) Room Air 06/05/21 09:49 72 18 126/71 (89) Room Air 06/05/21 09:34 37.0 83 18 124/76 (92) Room Air 06/05/21 09:19 81 18 119/82 (94) Room Air 06/05/21 09:03 82 18 125/73 (90) Room Air 06/05/21 08:50 81 18 123/79 (94) Room Air 06/05/21 07:37 66 18 128/77 (94) Room Air 06/05/21 07:31 36.5 67 18 122/73 (89) Room Air 06/05/21 06:36 72 18 115/71 (86) Room Air 06/05/21 05:37 61 18 115/71 (86) Room Air 06/05/21 04:35 68 18 111/68 (82) Room Air 06/05/21 03:38 36.6 64 18 112/69 (83) Room Air 06/05/21 02:37 63 18 118/73 (88) Room Air 06/05/21 01:38 67 18 116/68 (84) Room Air 06/05/21 00:35 37.1 74 18 121/69 (86) Room Air 06/04/21 23:35 73 18 117/57 (77) Room Air 06/04/21 22:35 78 18 128/73 (91) Room Air 06/04/21 21:30 37.0 74 18 128/78 (95) Room Air 06/04/21 21:00 81 18 123/76 (92) Room Air 06/04/21 20:30 80 18 116/58 (77) Room Air 06/04/21 20:00 37.3 83 18 129/81 (97) 98 Room Air 06/04/21 19:34 37.0 82 18 118/76 (90) 98 Room Air 06/04/21 19:34 37.0 82 18 98 Room Air I & O 06/05/21 07:00 Intake Total 2000 ml Balance 2000 ml Labs Laboratory Tests 06/04/21 18:55: White Blood Count 22.6H, Red Blood Count 4.34, Hemoglobin 14.1, Hematocrit 40, Mean Corpuscular Volume 92, Mean Corpuscular Hemoglobin 33, Mean Corpuscular Hemoglobin Concent 36, Red Cell Distribution Width 12.2, Platelet Count 368, Mean Platelet Volume 10.4, Immature Granulocyte % (Auto) 3, Neutrophils (%) (Auto) 74, Lymphocytes (%) (Auto) 16, Monocytes (%) (Auto) 6, Eosinophils (%) (Auto) 1, Basophils (%) (Auto) 0, Neutrophils # (Auto) 16.7H, Lymphocytes # (Auto) 3.6, Monocytes # (Auto) 1.4H, Eosinophils # (Auto) 0.3, Basophils # (Auto) 0.1, Immature Granulocyte # (Auto) 0.6H, Neutrophils % (Manual) 74, Lymphocytes % (Manual) 14, Monocytes % (Manual) 10, Eosinophils % (Manual) 2, Blood Morphology Comment NORMAL, Sodium Level 134L, Potassium Level 3.2L, Chloride Level 106, Carbon Dioxide Level 16L, Anion Gap 12, Blood Urea Nitrogen 9, Creatinine 0.71, Estimat Glomerular Filtration Rate 123, BUN/Creatinine Ratio 13, Glucose Level 90, Uric Acid 3.6, Calcium Level 8.8, Corrected Calcium 9.3, Total Bilirubin 0.4, Aspartate Amino Transf (AST/SGOT) 14, Alanine Aminotransferase (ALT/SGPT) 7, Alkaline Phosphatase 214H, Lactate Dehydrogenase 154, Total Protein 6.9, Albumin 3.4 06/04/21 23:41: Urine Protein < 6L, Urine Creatinine 59, Urine Protein/Creatinine Ratio 06/04/21 23:51: Urine Protein NEGATIVE, Urine Color YELLOW, Urine Clarity CLEAR, Urine pH 6.5, Urine Specific [place] <=1.005, Urine Glucose (UA) NEGATIVE, Urine Ketones NEGATIVE, Urine Nitrite NEGATIVE, Urine Bilirubin NEGATIVE, Urine Urobilinogen 0.2, Urine Leukocyte Esterase NEGATIVE, Urine RBC (Auto) NEGATIVE, Urine RBC NONE, Urine WBC NONE, Urine Squamous Epithelial Cells 2-5, Urine Crystals NONE, Urine Bacteria TRACE, Urine Casts NONE, Urine Mucus SMALLH, Urine Culture Indicated NO TERESO BARNES MD Jun 05, 2021 13:22
[2021-06-05] MEDS ORDERED: BUPIVACAINE 0.25% 30 ML (SENSORCAINE) VIAL ONE (14:20)
[2021-06-05] MEDS ORDERED: fentaNYL INJ 100 MCG/2 ML AMP ONE (14:20)
[2021-06-05] MEDS ORDERED: NALOXONE 0.4 MG/ML 1 ML (NARCAN) VIAL IV PRN (14:45)
[2021-06-05] MEDS ORDERED: EPIDURAL (fentaNYL 2 MCG/ML BUPIVA 0.125%)100 ML BAG EPI PRN (14:45)
[2021-06-05] MEDS ORDERED: ONDANSETRON 4 MG/2 ML (SDV) Z0FRAN IV PRN (14:45)
[2021-06-05] MEDS ORDERED: fentaNYL INJ 100 MCG/2 ML AMP INJ ONE (14:45)
[2021-06-05] MEDS ORDERED: LACTATED RINGERS 1,000 ML IV ONE ×2 (14:45)
[2021-06-05] MEDS ORDERED: LIDOCAINE/EPI 2% 1:200,00 (XYLOCAINE) 10 ML VIAL ONE (19:00)
[2021-06-05] MEDS ORDERED: WITCH HAZEL(TUCKS) 40 EA JAR TOP PRN (20:15)
[2021-06-05] MEDS ORDERED: OXYTOCIN PRE-MIX DRIP 500 ML IV SCH (20:15)
[2021-06-05] MEDS ORDERED: BENZOCAINE/MENTHOL (DERMOPLAST) 56 ML CAN TP PRN (20:15)
--- NOTE | 2021-06-05 20:23 | OB Labor & Delivery Record ---
Vag Delivery Note Vag Delivery Note Date of Delivery: 06/05/21 Preoperative Diagnosis: Dipesh Montes is a (20 /Para 2 / 0,Gestational Age (wks)39with 1 day Postoperative Diagnosis: Same Surgeon: TERESO BARNES Senior Telecommunications Consultant: Mateo Avendaño, MS4 Anesthesia: Epidural Delivery Type: Findings: Viable male infant, apgars 8/9, weight [] Lacerations: Intact placenta with 3 vessel cord. No nuchal cord, body cord or shoulder dystocia Cytotec 800 mcg placed for hemorrhage prophylaxis Estimated Blood Loss: 300 ml Complications: None Condition: Stable Description of Procedure: The patient is a 20 year old female who presented for induction of labor for gestational hypertension. She was admitted and informed consent was obtained. Her labor course was unremarkable. She progressed to complete dilatation and began to push. She was then set up for delivery. The 's head was delivered atraumatically in the LUZ position. The shoulders and remainder of the 's body were then delivered without difficulty. Upon delivery, the infant was vigorous and placed on maternal abdomen. After a delay the cord was doubly clamped and cut and the infant remained on maternal abdomen transitioning. An intact placenta with 3- vessel cord delivered via [place] and there was found to be minimal bleeding.~ Vigorous fundal massage was performed and the fundus was found to be firm. IV oxytocin was given. Examination of the vagina and perineum revealed a first degree perineal laceration repaired with two simple interrupted stitches with 3- 0 vicryl rapide. Second right vaginal wall laceration repaired with single interrupted stitch with 3-0 rapide. Following the repair, sponge, instrument and needle counts were correct. Mom and baby were both in stable condition in the labor suite. Vitals - Labs Vital Signs - I&O Vital Signs Date Time Temp Pulse Resp B/P (MAP) Pulse Ox O2 Delivery O2 Flow Rate FiO2 06/05/21 19:00 96 18 148/91 (110) Room Air 06/05/21 18:44 80 18 124/79 (94) Room Air 06/05/21 18:28 74 18 119/56 (77) Room Air 06/05/21 18:15 80 18 138/76 (96) Room Air 06/05/21 18:00 90 18 144/69 (94) Room Air 06/05/21 17:43 77 18 139/85 (103) Room Air 06/05/21 17:28 81 18 136/88 (104) Room Air 06/05/21 17:13 75 18 152/88 (109) Room Air 06/05/21 16:59 36.3 75 18 130/69 (89) Room Air 06/05/21 16:42 74 18 119/61 (80) Room Air 06/05/21 16:28 71 18 118/64 (82) Room Air 06/05/21 16:13 68 18 118/58 (78) Room Air 06/05/21 15:58 74 18 119/60 (79) Room Air 06/05/21 15:43 77 18 118/68 (85) Room Air 06/05/21 15:24 90 18 125/77 (93) 99 Room Air 06/05/21 15:21 85 18 124/77 (93) 98 Room Air 06/05/21 15:15 91 18 125/66 (85) 98 Room Air 06/05/21 15:09 81 18 129/79 (96) 100 Room Air 06/05/21 15:05 96 18 129/79 (96) 98 Room Air 06/05/21 15:00 79 18 129/69 (89) 99 Room Air 06/05/21 14:51 69 18 116/68 (84) Room Air 06/05/21 14:49 86 18 112/72 (85) 98 Room Air 06/05/21 14:46 88 18 106/67 (80) Room Air 06/05/21 14:43 86 18 112/59 (76) 98 Room Air 06/05/21 14:40 78 18 118/71 (87) 98 Room Air 06/05/21 14:37 80 18 117/69 (85) Room Air 06/05/21 14:34 36.6 86 18 126/83 (97) 100 Room Air 06/05/21 14:31 96 18 125/77 (93) 97 Room Air 06/05/21 14:24 111 18 130/87 (101) 98 Room Air 06/05/21 14:19 78 18 127/73 (91) Room Air 06/05/21 14:04 89 18 126/67 (86) Room Air 06/05/21 13:49 82 18 135/65 (88) Room Air 06/05/21 13:33 85 18 126/74 (91) Room Air 06/05/21 13:18 78 18 123/61 (81) Room Air 06/05/21 13:00 76 18 135/91 (106) Room Air 06/05/21 12:49 75 18 130/78 (95) Room Air 06/05/21 12:35 81 18 126/80 (95) Room Air 06/05/21 12:18 81 18 115/61 (79) Room Air 06/05/21 12:03 78 18 132/64 (86) Room Air 06/05/21 11:47 78 18 119/73 (88) Room Air 06/05/21 11:33 37.0 69 18 124/75 (91) Room Air 06/05/21 11:18 84 18 128/86 (100) Room Air 06/05/21 11:02 85 18 125/80 (95) Room Air 06/05/21 10:48 86 18 110/70 (83) Room Air 06/05/21 10:18 77 18 129/81 (97) Room Air 06/05/21 10:05 75 18 133/80 (97) Room Air 06/05/21 09:49 72 18 126/71 (89) Room Air 06/05/21 09:34 37.0 83 18 124/76 (92) Room Air 06/05/21 09:19 81 18 119/82 (94) Room Air 06/05/21 09:03 82 18 125/73 (90) Room Air 06/05/21 08:50 81 18 123/79 (94) Room Air 06/05/21 07:37 66 18 128/77 (94) Room Air 06/05/21 07:31 36.5 67 18 122/73 (89) Room Air 06/05/21 06:36 72 18 115/71 (86) Room Air 06/05/21 05:37 61 18 115/71 (86) Room Air 06/05/21 04:35 68 18 111/68 (82) Room Air 06/05/21 03:38 36.6 64 18 112/69 (83) Room Air 06/05/21 02:37 63 18 118/73 (88) Room Air 06/05/21 01:38 67 18 116/68 (84) Room Air 06/05/21 00:35 37.1 74 18 121/69 (86) Room Air 06/04/21 23:35 73 18 117/57 (77) Room Air 06/04/21 22:35 78 18 128/73 (91) Room Air 06/04/21 21:30 37.0 74 18 128/78 (95) Room Air 06/04/21 21:00 81 18 123/76 (92) Room Air 06/04/21 20:30 80 18 116/58 (77) Room Air I & O 06/05/21 07:00 Intake Total 2000 ml Balance 2000 ml Labs Laboratory Tests 06/04/21 23:41: Urine Protein < 6L, Urine Creatinine 59, Urine Protein/Creatinine Ratio 06/04/21 23:51: Urine Protein NEGATIVE, Urine Color YELLOW, Urine Clarity CLEAR, Urine pH 6.5, Urine Specific [place] <=1.005, Urine Glucose (UA) NEGATIVE, Urine Ketones NEGATIVE, Urine Nitrite NEGATIVE, Urine Bilirubin NEGATIVE, Urine Urobilinogen 0.2, Urine Leukocyte Esterase NEGATIVE, Urine RBC (Auto) NEGATIVE, Urine RBC NONE, Urine WBC NONE, Urine Squamous Epithelial Cells 2-5, Urine Crystals NONE, Urine Bacteria TRACE, Urine Casts NONE, Urine Mucus SMALLH, Urine Culture Indicated NO TERESO BARNES MD Jun 05, 2021 20:23
[2021-06-05] MEDS ORDERED: CALCIUM CARBONATE 500 MG (TUMS) TAB.CHEW PO PRN (20:45)
[2021-06-05] MEDS ORDERED: CATHETER FLUSH 10 ML SYR IV SCH (22:00)
[2021-06-05] MEDS: IBUPROFEN 600 MG (MOTRIN) TAB PO SCH (23:25)
[2021-06-06 04:00] VITALS: BP 120/69
[2021-06-06] MEDS: DOCUSATE SODIUM 100 MG (COLACE) CAP PO SCH ×2 (05:33→09:45)
[2021-06-06] MEDS: IBUPROFEN 600 MG (MOTRIN) TAB PO SCH ×3 (05:38→17:48)
[2021-06-06 05:42] LABS: BASOPHILS # (AUTO) 0.1 10^3/uL (0.0-0.1); BASOPHILS % (AUTO) 0 % (0-10); EOSINOPHILS # (AUTO) 0.2 10^3/uL (0.0-0.3); EOSINOPHILS % (AUTO) 1 % (0-10); HEMATOCRIT 32 % (35-52); HEMOGLOBIN 11.3 g/dL (11.5-16.0); LYMPHOCYTES # (AUTO) 2.8 10^3/uL (1.0-4.0); LYMPHOCYTES % (AUTO) 14 % (12-44); MEAN CORPUSCULAR HEMOGLOBIN 32 pg (25-34); MEAN CORPUSCULAR HGB CONC 35 g/dL (32-36); MEAN CORPUSCULAR VOLUME 92 fL (80-99); MEAN PLATELET VOLUME 10.2 fL (9.0-12.2); MONOCYTES # (AUTO) 1.4 10^3/uL (0.0-1.0); MONOCYTES % (AUTO) 7 % (0-12); NEUTROPHILS # (AUTO) 15.7 10^3/uL (1.8-7.8); NEUTROPHILS % (AUTO) 77 % (42-75); PLATELET COUNT 277 10^3/uL (130-400); WHITE BLOOD COUNT 20.5 10^3/uL (4.3-11.0)
[2021-06-06 09:15] VITALS: BP 125/71
[2021-06-06] MEDS: PRENATAL VITAMIN 1 EA TAB PO SCH (09:46)
[2021-06-06] MEDS: ACETAMINOPHEN 500 MG TAB (TYLENOL) PO PRN ×2 (09:47→17:48)
--- NOTE | 2021-06-06 10:01 | Progress Note ---
Subjective Subjective/Events-last exam Doing well. Cramping minimal, bleeding decreased. Breast feeding. Objective Exam Last Set of Vital Signs Vital Signs Date Time Temp Pulse Resp B/P (MAP) Pulse Ox O2 Delivery O2 Flow Rate FiO2 06/06/21 04:00 36.6 69 18 120/69 (86) 98 Room Air Capillary Refill : Less Than 3 Seconds I&O Intake and Output 06/06/21 00:00 Intake Total 5000 ml Balance 5000 ml Intake IV Total 5000 ml General: Alert, Oriented X3, Cooperative Psych/Mental Status: Mood NL Results/Procedures Lab Laboratory Tests 06/06/21 05:35: White Blood Count 20.5H, Red Blood Count 3.49L, Hemoglobin 11.3L, Hematocrit 32L , Mean Corpuscular Volume 92, Mean Corpuscular Hemoglobin 32, Mean Corpuscular Hemoglobin Concent 35, Red Cell Distribution Width 12.2, Platelet Count 277, Mean Platelet Volume 10.2, Immature Granulocyte % (Auto) 1, Neutrophils (%) (Auto) 77H, Lymphocytes (%) (Auto) 14, Monocytes (%) (Auto) 7, Eosinophils (%) (Auto) 1, Basophils (%) (Auto) 0, Neutrophils # (Auto) 15.7H, Lymphocytes # (Auto) 2.8, Monocytes # (Auto) 1.4H, Eosinophils # (Auto) 0.2, Basophils # (Auto) 0.1, Immature Granulocyte # (Auto) 0.2H Assessment/Plan Assessment/Plan (1) Status post vaginal delivery Assessment & Plan: PPD#1 s/p on 06/05/21 first degree and R vaginal side wall laceration s/p repair. Doing well Routine care. Anticipate home tomorrow. BEN DUMONT DO Jun 06, 2021 10:01
[2021-06-06 12:15] VITALS: BP 120/66
--- NOTE | 2021-06-06 12:32 | Anesthesia-Regional Post-Op ---
Regional Patient Condition Mental Status: Alert, Oriented x3 Circulation: Same as Pre-Op Headache: Absent Sensation: Full Recovery Motor Block: Absent Post Op Complications Complications None Follow Up Care/Instructions Patient Instructions None needed. Anesthesia/Patient Condition Patient is doing well, no complaints, stable vital signs, no apparent adverse anesthesia problems. No complications reported per nursing. SHELTON MAC CRNA Jun 06, 2021 12:32
[2021-06-06 16:00] VITALS: BP 129/73
[2021-06-06 20:35] VITALS: BP 129/79
[2021-06-07] MEDS: DOCUSATE SODIUM 100 MG (COLACE) CAP PO SCH ×2 (01:05→08:09)
[2021-06-07] MEDS: IBUPROFEN 600 MG (MOTRIN) TAB PO SCH ×2 (01:05→08:09)
[2021-06-07 01:15] VITALS: BP 125/85
[2021-06-07 08:07] VITALS: BP 118/73
[2021-06-07] MEDS: PRENATAL VITAMIN 1 EA TAB PO SCH (08:10)
[2021-06-07] MEDS ORDERED: IBUP-844 PO (11:03)
--- NOTE | 2021-06-07 11:06 | Short Stay Summary ---
Discharge Summary Hospital Course Problems/Dx: (1) Status post vaginal delivery Assessment & Plan: s/p on 06/05/21 first degree and R vaginal side wall laceration s/p repair. Doing well Routine care. DC home (2) Gestational hypertension Qualifiers: Qualified Codes: O13.3 - Gestational [-induced] hypertension without significant proteinuria, third trimester Final Diagnosis: see problem list Hospital Course Date of Admission: Jun 04, 2021 at 18:19 Family Physician/Provider: Tereso Sin MD Date of Discharge: 06/07/21 Labs and Pending Lab Test: Laboratory Tests 06/04/21 18:55: White Blood Count 22.6H, Red Blood Count 4.34, Hemoglobin 14.1, Hematocrit 40, Mean Corpuscular Volume 92, Mean Corpuscular Hemoglobin 33, Mean Corpuscular Hemoglobin Concent 36, Red Cell Distribution Width 12.2, Platelet Count 368, Mean Platelet Volume 10.4, Immature Granulocyte % (Auto) 3, Neutrophils (%) (Auto) 74, Lymphocytes (%) (Auto) 16, Monocytes (%) (Auto) 6, Eosinophils (%) (Auto) 1, Basophils (%) (Auto) 0, Neutrophils # (Auto) 16.7H, Lymphocytes # (Auto) 3.6, Monocytes # (Auto) 1.4H, Eosinophils # (Auto) 0.3, Basophils # (Auto) 0.1, Immature Granulocyte # (Auto) 0.6H, Neutrophils % (Manual) 74, Lymphocytes % (Manual) 14, Monocytes % (Manual) 10, Eosinophils % (Manual) 2, Blood Morphology Comment NORMAL, Sodium Level 134L, Potassium Level 3.2L, Chloride Level 106, Carbon Dioxide Level 16L, Anion Gap 12, Blood Urea Nitrogen 9, Creatinine 0.71, Estimat Glomerular Filtration Rate 123, BUN/Creatinine Ratio 13, Glucose Level 90, Uric Acid 3.6, Calcium Level 8.8, Corrected Calcium 9.3, Total Bilirubin 0.4, Aspartate Amino Transf (AST/SGOT) 14, Alanine Aminotransferase (ALT/SGPT) 7, Alkaline Phosphatase 214H, Lactate Dehydrogenase 154, Total Protein 6.9, Albumin 3.4 06/04/21 23:41: Urine Protein < 6L, Urine Creatinine 59, Urine Protein/Creatinine Ratio 06/04/21 23:51: Urine Protein NEGATIVE, Urine Color YELLOW, Urine Clarity CLEAR, Urine pH 6.5, Urine Specific [place] <=1.005, Urine Glucose (UA) NEGATIVE, Urine Ketones NEGATIVE, Urine Nitrite NEGATIVE, Urine Bilirubin NEGATIVE, Urine Urobilinogen 0.2, Urine Leukocyte Esterase NEGATIVE, Urine RBC (Auto) NEGATIVE, Urine RBC NONE, Urine WBC NONE, Urine Squamous Epithelial Cells 2-5, Urine Crystals NONE, Urine Bacteria TRACE, Urine Casts NONE, Urine Mucus SMALLH, Urine Culture Indicated NO 06/06/21 05:35: White Blood Count 20.5H, Red Blood Count 3.49L, Hemoglobin 11.3L, Hematocrit 32L, Mean Corpuscular Volume 92, Mean Corpuscular Hemoglobin 32, Mean C orpuscular Hemoglobin Concent 35, Red Cell Distribution Width 12.2, Platelet Count 277, Mean Platelet Volume 10.2, Immature Granulocyte % (Auto) 1, Neutrophils (%) (Auto) 77H, Lymphocytes (%) (Auto) 14, Monocytes (%) (Auto) 7, Eosinophils (%) (Auto) 1, Basophils (%) (Auto) 0, Neutrophils # (Auto) 15.7H, Lymphocytes # (Auto) 2.8, Monocytes # (Auto) 1.4H, Eosinophils # (Auto) 0.2, Ba sophils # (Auto) 0.1, Immature Granulocyte # (Auto) 0.2H Home Meds Active Reported Acetaminophen 500 Mg Tablet 500 Mg PO Q6H PRN Vitamin Tablet ( Vit No.124/Iron/FA) 1 Each Tablet 1 Each PO D AILY Assessment/Pt Instructions Follow-up with Dr. Sin in 6wk Discharge Instructions Discharge Diet: No Restrictions Discharge Physical Examination General Appearance: Alert, Oriented X3, Cooperative Psych/Mental Status: Mood NL Allergies: Coded Allergies: latex (Verified Allergy, Mild, 06/05/21) Copy Copies To 1: TERESO SIN MD Discharge Summary Date of Admission Jun 04, 2021 at 18:19 Date of Discharge Discharge Diagnosis (1) Gestational hypertension Qualifiers: Qualified Codes: O13.3 - Gestational [-induced] hypertension without significant proteinuria, third trimester BEN DUMONT DO Jun 07, 2021 11:05
== END 2021-06-07 15:30 | disposition home or self-care (01) | DRG 807 ==
LOC: LDRP 18:19 → WS 06-05 17:04 → LDRP 06-05 23:30
PROVIDERS: ADMIT Family Medicine; ATTEND Family Medicine
PROC: 3E0DXGC Introduction of Other Therapeutic Substance into Mouth and Pharynx, External Approach (ICD-10-PCS; 2021-06-04)
PROC: 10E0XZZ Delivery of Products of Conception, External Approach (ICD-10-PCS; principal; 2021-06-05)
PROC: 0HQ9XZZ Repair Perineum Skin, External Approach (ICD-10-PCS; 2021-06-05)
DX: O13.4 Gestational [pregnancy-induced] hypertension without significant proteinuria, complicating childbirth (principal); Z37.0 Single live birth; O70.0 First degree perineal laceration during delivery; Z3A.39 39 weeks gestation of pregnancy
CPT/HCPCS: 36415; 80053; 81000; 82570; 83615; 84156; 84550; 85007; 85025; 85027; 86850; 86900; 86901